=== PATIENT | male | born 1990 | race Caucasian/White ===

== ENCOUNTER 2025-08-12 14:38 | Inpatient (IN) | payer BC ==
[~2025-08-12 14:38] MED LIST: Iopamidol 370 76% 100 ML VIAL ONE
[2025-08-12] MEDS ORDERED: Acetaminophen 500 MG TAB ONE (14:45)
[2025-08-12 15:44] LABS: #Basophils Less than 0.03 10x3/uL (0.0-0.2); #Eosinophils Less than 0.03 10x3/uL (0.0-0.7); #Monocytes 0.17 10x3/uL (0.11-0.59); #Neutrophils 4.48 10x3/uL (1.40-6.50); %Basophils 0.2 % (0.0-1.0); %Eosinophils 0.0 % (0.0-10.0); %Lymphocytes 4.7 % (21.0-51.0); %Monocytes 3.5 % (0.0-10.0); %Neutrophils 91.4 % (42.0-75.0); Hematocrit 40.3 % (42.0-52.0); Hemoglobin 13.1 g/dL (14.0-18.0); Mean Corpuscular Hemoglobin 32.9 pg (27.0-31.0); Mean Corpuscular Volume 101.3 fL (78.0-98.0); Platelet Count 218 10x3/uL (130-400); Red Blood Cell (RBC) Count 3.98 mill/uL (4.70-6.10); White Blood Cell (WBC) Count 4.90 10x3/uL (4.8-10.8)
[2025-08-12] MEDS ORDERED: Cefepime 2 GM VIAL ONE (15:53)
[2025-08-12 16:08] LABS: ALT (SGPT) 64 U/L (Less than 45); AST (SGOT) 51 U/L (11-34); Albumin 3.7 g/dL (3.1-4.5); Alkaline Phosphatase 69 U/L (40-110); Anion Gap 13 mmol/L (10-20); BUN (Urea Nitrogen) 10 mg/dL (8.9-20.6); Bilirubin, Total 0.4 mg/dL (0.3-1.2); Calc. Creatinine Clearance 0 mL/min (70-130); Calcium 8.5 mg/dL (7.8-10.44); Carbon Dioxide 26 mmol/L (22-29); Chloride 104 mmol/L (98-107); Globulin 2.7 g/dL (2.4-3.5); Glucose 120 mg/dL (70-105); Magnesium 1.8 mg/dL (1.6-2.6); Potassium 4.2 mmol/L (3.5-5.1); Sodium 139 mmol/L (136-145)
[2025-08-12 16:27] LABS: HIV (1/2) Antibody/Antigen NONREACTIVE (NonReactive); HIV 1/2 INDEX 0.07 S/CO (<1.00)
[2025-08-12] MEDS ORDERED: Ondansetron PF 4 MG/2 ML Vial IVP PRN (16:49)
[2025-08-12] MEDS ORDERED: Communication Order-Pharmacy FS SCH (16:49)
[2025-08-12] MEDS ORDERED: Potassium Chloride 20 MEQ in Premix 1 BAG IVPB PRN (17:00)
[2025-08-12] MEDS ORDERED: PHOS-NAK 1 PKT PACK PO PRN (17:00)
[2025-08-12] MEDS ORDERED: Magnesium 2 GM/50 ML(in water) 2 GM in Premix 1 BAG IVPB PRN (17:00)
[2025-08-12] MEDS ORDERED: Electrolyte Replacement Protocol 1 EACH FS SCH (17:00)
[2025-08-12] MEDS ORDERED: Sodium Chloride 0.65% Nasal 44 ML BOT EA NARE PRN (17:45)
[2025-08-12] MEDS ORDERED: Artificial Tear Ophth Sol 15 ML BOT EA EYE PRN (17:45)
[2025-08-12] MEDS: Vancomycin (BATCH) 2.5 GM in Premix 1 BAG IVPB SCH ×2 (17:55→19:29)
[2025-08-12] MEDS: Ibuprofen 200 MG TAB PO SCH (18:41)
[2025-08-12 18:45] VITALS: BMI 29.5
[2025-08-12] MEDS: Azithromycin 500 MG in Sodium Chloride 0.9% 250 ML 250 ML IVPB SCH (19:35)
[2025-08-12] MEDS: Famotidine/PF 20 mg/2ml Vial SLOW IVP SCH (20:03)
[2025-08-12] MEDS ORDERED: Vancomycin 1 GM in Sodium Chloride 0.9% 250 ML 300 ML IVPB SCH (21:00)
[2025-08-12] MEDS: Famotidine 20 MG TAB PO SCH (21:09)
[2025-08-12] MEDS: QUEtiapine 100 MG TAB PO SCH (21:09)
[2025-08-12] MEDS: Buprenorphine 2mg/Naloxone 0.5mg per 1 FILM SL SCH (21:55)
[2025-08-13 01:08] LABS: Cocaine Metabolite Screen Negative (Negative); THC/Cannabinoid Screen Negative (Negative); Tricyclic Screen Negative (Negative)
[2025-08-13 01:14] LABS: Legionella Urinary Ag Negative (Negative); Strep pneumo Urine Ag NEGATIVE (NEGATIVE)
[2025-08-13 07:37] LABS: Vancomycin, Random 4.8 ug/mL (See Comment)
[2025-08-13 07:38] LABS: Hematocrit 34.7 % (42.0-52.0); Hemoglobin 10.9 g/dL (14.0-18.0); Mean Corpuscular Hemoglobin 32.7 pg (27.0-31.0); Mean Corpuscular Volume 104.2 fL (78.0-98.0); Platelet Count 176 10x3/uL (130-400); Red Blood Cell (RBC) Count 3.33 mill/uL (4.70-6.10); White Blood Cell (WBC) Count 13.84 10x3/uL (4.8-10.8)
[2025-08-13 07:39] LABS: ALT (SGPT) 47 U/L (Less than 45); AST (SGOT) 27 U/L (11-34); Albumin 2.9 g/dL (3.1-4.5); Alkaline Phosphatase 48 U/L (40-110); Anion Gap 13 mmol/L (10-20); BUN (Urea Nitrogen) 12 mg/dL (8.9-20.6); Bilirubin, Total 0.3 mg/dL (0.3-1.2); Calc. Creatinine Clearance 229 mL/min (70-130); Calcium 8.0 mg/dL (7.8-10.44); Carbon Dioxide 23 mmol/L (22-29); Chloride 109 mmol/L (98-107); Globulin 2.4 g/dL (2.4-3.5); Glucose 134 mg/dL (70-105); Potassium 4.8 mmol/L (3.5-5.1); Sodium 140 mmol/L (136-145)
[2025-08-13 08:56] LABS: Macrocytosis SLIGHT = 6-15 cells HPF (0-5); Nucleated RBC (Manual Ct) 1 % (0); Platelet Adequacy Comment Platelets Normal
[2025-08-13] MEDS: Vancomycin 1.25 GM / NS 250 ML VIAL-2-BAG IVPB SCH (09:06)
[2025-08-13] MEDS: Enoxaparin 40 MG (0.4 mL) SYRINGE SC SCH (09:06)
[2025-08-13] MEDS: Folic Acid/Vit B Comp W-C PO SCH (09:07)
[2025-08-13 11:20] VITALS: BMI 29.5
[2025-08-13] MEDS: Acetaminophen 325 MG TAB PO PRN (16:36)
[2025-08-14] MEDS ORDERED: Guaifenesin DM 100-10/5 ML UDCUP PO PRN (09:07)
[2025-08-14 10:18] LABS: Anion Gap 13 mmol/L (10-20); BUN (Urea Nitrogen) 11 mg/dL (8.9-20.6); Calc. Creatinine Clearance 233 mL/min (70-130); Calcium 8.9 mg/dL (7.8-10.44); Carbon Dioxide 24 mmol/L (22-29); Chloride 109 mmol/L (98-107); Glucose 139 mg/dL (70-105); Potassium 3.9 mmol/L (3.5-5.1); Sodium 142 mmol/L (136-145)
[2025-08-14 10:19] LABS: #Basophils Less than 0.03 10x3/uL (0.0-0.2); #Eosinophils Less than 0.03 10x3/uL (0.0-0.7); #Monocytes 0.36 10x3/uL (0.11-0.59); #Neutrophils 16.19 10x3/uL (1.40-6.50); %Basophils 0.1 % (0.0-1.0); %Eosinophils 0.0 % (0.0-10.0); %Lymphocytes 3.2 % (21.0-51.0); %Monocytes 2.1 % (0.0-10.0); %Neutrophils 92.5 % (42.0-75.0); Hematocrit 30.5 % (42.0-52.0); Hemoglobin 9.9 g/dL (14.0-18.0); Mean Corpuscular Hemoglobin 33.0 pg (27.0-31.0); Mean Corpuscular Volume 101.7 fL (78.0-98.0); Platelet Count 214 10x3/uL (130-400); Red Blood Cell (RBC) Count 3.00 mill/uL (4.70-6.10); White Blood Cell (WBC) Count 17.49 10x3/uL (4.8-10.8)
[2025-08-14 10:29] LABS: CRP, High Sensitivity at Bryan 29.60 mg/dL (< or = 0.5)
[2025-08-14] MEDS: Cyclobenzaprine 10 MG TAB PO PRN (12:59)
[2025-08-14 20:17] VITALS: BP 143/84; TEMP 98.5
[2025-08-14] MEDS: Senokot S 8.6-50 MG TAB PO SCH (21:16)
[2025-08-15] MEDS ORDERED: predniSONE 20 MG TAB PO SCH (08:00)
== END 2025-08-14 22:15 | disposition left against medical advice (07) | DRG 871 ==
LOC: ERS 14:38 → ERHOLD 16:49 → IMCU/EMU 18:15 → T4-B 08-13 14:47
PROVIDERS: ADMIT Family Medicine; ATTEND Internal Medicine
PROC: 5A0935A Assistance with Respiratory Ventilation, Less than 24 Consecutive Hours, High Flow/Velocity Cannula (ICD-10-PCS; principal; 2025-08-12)
PROC: 3E03329 Introduction of Other Anti-infective into Peripheral Vein, Percutaneous Approach (ICD-10-PCS; 2025-08-14)
DX: A41.9 Sepsis, unspecified organism (principal); J18.9 Pneumonia, unspecified organism; J96.01 Acute respiratory failure with hypoxia; E87.20 Acidosis, unspecified; R65.20 Severe sepsis without septic shock; F10.11 Alcohol abuse, in remission; D53.9 Nutritional anemia, unspecified; G47.00 Insomnia, unspecified; R74.01 Elevation of levels of liver transaminase levels; G47.33 Obstructive sleep apnea (adult) (pediatric); K31.84 Gastroparesis; F17.290 Nicotine dependence, other tobacco product, uncomplicated; F39 Unspecified mood [affective] disorder; F41.9 Anxiety disorder, unspecified; Z53.29 Procedure and treatment not carried out because of patient's decision for other reasons
CPT/HCPCS: 36415; 71045; 71275; 80048; 80053; 80202; 80306; 80307; 83605; 83735; 83880; 84145; 84443; 84484; 85025; 86141; 87040; 87070; 87077; 87081; 87205; 87389; 87428; 87449; 87899; 93005; 94640; 94760; 96365; 96366; 96367; 96375; J0456; J0572; J0692; J1650; J2543; J2919; J3373; J7050; J7120; Q9967